=== PATIENT | female | born 1990 | race Caucasian/White ===

== ENCOUNTER 2021-11-08 19:44 | Emergency (ER) | payer BC, MEDICAID ==
[2021-11-08 21:40] LABS: CORONAVIRUS COVID-19 NAA NEGATIVE (NEGATIVE)
[2021-11-08] MEDS ORDERED: Ciprofloxacin 500 MG Tab PO ONE (22:16)
== END 2021-11-08 22:59 | disposition home or self-care (01) ==
LOC: JP.ED 19:44
DX: K29.01 Acute gastritis with bleeding (principal); R19.7 Diarrhea, unspecified; Z20.822 Contact with and (suspected) exposure to COVID-19
CPT/HCPCS: 0241U; 36415; 82272; 85025; 86618; 87046; 87899; 99282; 99284; A9270